=== PATIENT | male | born 1985 | race Caucasian/White ===

== ENCOUNTER 2020-09-20 23:03 | Inpatient (IN) | payer OTHER, SELFPAY ==
[2020-09-21 01:27] VITALS: BMI 24.5
[2020-09-21] MEDS ORDERED: Ondansetron PF 4 MG/2 ML Vial IVP PRN (01:57)
[2020-09-21] MEDS ORDERED: Promethazine HCl 25 MG/ML VIAL IM PRN ×2 (01:57→19:07)
[2020-09-21] MEDS ORDERED: hydrALAZINE 20 MG/ML VIAL SLOW IVP PRN (01:57)
[2020-09-21] MEDS ORDERED: traMADol HCl 50 MG TAB PO PRN (02:01)
[2020-09-21] MEDS ORDERED: Cyclobenzaprine 10 MG TAB PO PRN ×2 (02:01→22:51)
[2020-09-21] MEDS ORDERED: Ibuprofen 600 MG TAB PO PRN ×2 (02:01→22:51)
[2020-09-21] MEDS: Sodium Chloride 0.9% 1,000 ML IV SCH ×3 (02:29→23:52)
[2020-09-21] MEDS: Acetaminophen 325 MG TAB PO SCH ×3 (05:12→22:37)
[2020-09-21] MEDS: traMADol HCl 50 MG TAB PO SCH ×4 (05:12→23:25)
[2020-09-21 05:52] LABS: #Lymphocytes 1.8 thou/uL (1.20-3.40); #Monocytes 1.6 thou/uL (0.11-0.59); %Basophils 0.2 % (0.0-1.0); %Eosinophils 0.2 % (0.0-10.0); %Lymphocytes 10.1 % (21.0-51.0); %Neutrophils 80.4 % (42.0-75.0); Hemoglobin 13.1 g/dL (14.0-18.0); Mean Corpuscular HGB CONC 32.4 g/dL (32.0-36.0); Mean Corpuscular Volume 95.7 fL (78.0-98.0); Mean Platelet Volume 7.3 fL (7.4-10.4); Platelet Count 253 thou/uL (130-400); Red Blood Cell (RBC) Count 4.21 mill/uL (4.70-6.10); White Blood Cell (WBC) Count 17.4 thou/uL (4.8-10.8)
[2020-09-21 06:10] LABS: Phosphorus 2.8 mg/dL (2.3-4.7)
[2020-09-21 06:11] LABS: Anion Gap 12 mmol/L (10-20); BUN (Urea Nitrogen) 11 mg/dL (8.9-20.6); Calc. Creatinine Clearance 149 mL/min (70-130); Calcium 8.5 mg/dL (7.8-10.44); Carbon Dioxide 23 mmol/L (22-29); Chloride 106 mmol/L (98-107); Glucose 115 mg/dL (70-105); Magnesium 1.8 mg/dL (1.6-2.6); PTT 29.8 sec (22.9-36.1); Potassium 3.8 mmol/L (3.5-5.1); Prothrombin Time 13.6 sec (12.0-14.7); Sodium 137 mmol/L (136-145)
[2020-09-21] MEDS ORDERED: Magnesium Sulfate 3 GM in Sodium Chloride 0.9% 100 ML IV SCH (07:15)
[2020-09-21] MEDS ORDERED: CEFAZOLIN 2 GM in Premix Bag 1 BAG IVPB SCH (08:15)
[2020-09-21] MEDS: Famotidine/PF 20 mg/2ml Vial SLOW IVP SCH ×2 (08:42→21:40)
[2020-09-21] MEDS: Escitalopram Oxalate 10 mg Tablet PO SCH (08:43)
[2020-09-21 09:50] LABS: SARS-CoV-2 NAA Rapid Test Not Detected (NotDetected)
[2020-09-21] MEDS: Morphine 2 MG/ML VIAL SLOW IVP PRN ×3 (09:52→23:45)
[2020-09-21] MEDS ORDERED: Fentanyl 100 MCG/2 ML VIAL ONE ×6 (12:45→20:03)
[2020-09-21] MEDS ORDERED: Ondansetron PF 4 MG/2 ML Vial ONE ×4 (12:46→19:17)
[2020-09-21] MEDS ORDERED: Midazolam HCl 2 mg/2 ml Vial ONE (14:25)
[2020-09-21] MEDS ORDERED: Dexamethasone 20 MG/5 ML VIAL ONE (14:41)
[2020-09-21] MEDS ORDERED: Rocuronium Bromide 10 MG/ML (10ML VIAL) ONE (14:41)
[2020-09-21] MEDS ORDERED: PHENYLEPHRINE-NS 100 MCG/ML 10 ML SYRINGE ONE (14:41)
[2020-09-21] MEDS ORDERED: Glycopyrrolate 0.2 MG/ML 5 ML SYRINGE ONE (14:41)
[2020-09-21] MEDS ORDERED: Succinylcholine 200 MG/10 ml SYRINGE FS ONE (14:41)
[2020-09-21] MEDS ORDERED: PROPOFOL 200 MG/20 ML VIAL ONE (14:41)
[2020-09-21] MEDS ORDERED: Lidocaine 1% PF 5 ML VIAL ONE (14:41)
[2020-09-21] MEDS ORDERED: PROPOFOL 20 ML ONE (17:02)
[2020-09-21] MEDS ORDERED: Ondansetron HCl/PF 4 MG/2 ML Vial IVP PRN (19:07)
[2020-09-21] MEDS ORDERED: Ketorolac Tromethamine 30 MG/ML VIAL IVP PRN (19:07)
[2020-09-21] MEDS ORDERED: Promethazine HCl 25 MG/ML VIAL IVPB PRN (19:07)
[2020-09-21] MEDS ORDERED: Meperidine HCl/PF 25 MG/ML VIAL SLOW IVP PRN (19:07)
[2020-09-21] MEDS: CEFAZOLIN 2 GM in Premix Bag 1 BAG IVPB SCH (21:39)
[2020-09-21] MEDS: Acetaminophen 500 MG TAB PO SCH (23:24)
[2020-09-22] MEDS: Morphine 2 MG/ML VIAL SLOW IVP PRN ×2 (02:10→04:39)
[2020-09-22] MEDS ORDERED: Melatonin 3 MG TAB PO SCH ×2 (02:45→21:00)
[2020-09-22] MEDS: CEFAZOLIN 2 GM in Premix Bag 1 BAG IVPB SCH (04:02)
[2020-09-22] MEDS: traMADol HCl 50 MG TAB PO SCH ×3 (05:27→17:01)
[2020-09-22] MEDS: Acetaminophen 500 MG TAB PO SCH ×2 (05:27→11:31)
[2020-09-22] MEDS: Escitalopram Oxalate 10 mg Tablet PO SCH (09:01)
[2020-09-22] MEDS: Famotidine/PF 20 mg/2ml Vial SLOW IVP SCH (09:01)
[2020-09-22] MEDS: Ibuprofen 600 MG TAB PO SCH ×2 (09:39→17:02)
[2020-09-22] MEDS ORDERED: Gabapentin 300 MG CAP PO SCH (15:00)
[2020-09-22 15:52] VITALS: BP 135/86; TEMP 98.6
== END 2020-09-22 18:50 | disposition home or self-care (01) | DRG 494 ==
LOC: SURG B 23:03 → OBSVTOIN 09-21 01:57
PROVIDERS: ADMIT Surgery; ATTEND Surgery
PROC: 0PSC04Z Reposition Right Humeral Head with Internal Fixation Device, Open Approach (ICD-10-PCS; principal; 2020-09-21)
DX: S42.251A Displaced fracture of greater tuberosity of right humerus, initial encounter for closed fracture (principal); Z20.822 Contact with and (suspected) exposure to COVID-19; F32.9 Major depressive disorder, single episode, unspecified; S62.521A Displaced fracture of distal phalanx of right thumb, initial encounter for closed fracture; S43.004A Unspecified dislocation of right shoulder joint, initial encounter; V19.9XXA Pedal cyclist (driver) (passenger) injured in unspecified traffic accident, initial encounter; Y93.55 Activity, bike riding; Z79.899 Other long term (current) drug therapy
CPT/HCPCS: 36415; 76000; 80048; 83735; 84100; 85025; 85610; 85730; C1713; J0360; J0690; J1100; J2250; J2270; J2405; J2704; J3010; J3475; J3490; S0028; U0002; U0005

== ENCOUNTER → 2022-11-21 | Day surgery (SDC) | payer BC ==
[~2022-11-21] MED LIST: EPINEPHrine 1 MG/ML AMP ONE; Iopamidol 300 61% 100 ML VIAL FS ONE; Lidocaine 1% PF 5 ML VIAL ONE; Sodium Chloride 0.9% 50 ML BAG ONE
== END ==
LOC: RAD 08:46
PROVIDERS: ATTEND Orthopaedic Surgery
PROC: BP28YZZ Computerized Tomography (CT Scan) of Right Shoulder using Other Contrast (ICD-10-PCS; principal; 2022-11-21)
DX: T84.498S Other mechanical complication of other internal orthopedic devices, implants and grafts, sequela (principal)
CPT/HCPCS: 23350; J0171; Q9967